=== PATIENT | female | born 1980 | race African-American/Black ===

== ENCOUNTER 2018-04-09 11:23 | Emergency (ER) | payer OTHER ==
[2018-04-09] MEDS ORDERED: Nitroglycerin 0.4 MG TAB (25 Tab Bottle) ONE (11:36)
[2018-04-09 11:45] LABS: #Basophils 0.1 thou/uL (0.0-0.2); #Eosinphils 0.7 thou/uL (0.0-0.7); #Lymphocytes 3.9 thou/uL (1.20-3.40); #Monocytes 0.7 thou/uL (0.11-0.59); #Neutrophils 2.9 thou/uL (1.40-6.50); %Basophils 1.4 % (0.0-1.0); %Lymphocytes 47.2 % (21.0-51.0); %Neutrophils 35.5 % (42.0-75.0); Hemoglobin 15.2 g/dL (12.0-16.0); Mean Corpuscular HGB CONC 34.3 g/dL (32.0-36.0); Mean Corpuscular Hemoglobin 32.2 pg (27.0-31.0); Mean Corpuscular Volume 93.9 fl (81.0-99.0); Mean Platelet Volume 7.1 fL (7.4-10.4); Platelet Count 265 thou/uL (130-400); RBC Distribution Width 12.2 % (11.5-14.5); Red Blood Cell (RBC) Count 4.72 mill/uL (4.20-5.40); White Blood Cell (WBC) Count 8.2 thou/uL (4.8-10.8)
[2018-04-09 12:12] LABS: CKMB 1.3 ng/mL (0-6.6); Troponin I Less than 0.010 ng/mL (< 0.028)
[2018-04-09] MEDS ORDERED: Acetaminophen 500 MG TAB ONE (12:12)
--- NOTE | 2018-04-09 12:30 | RAD ---
PORTABLE CHEST: HISTORY: Chest pain. FINDINGS: Heart size is borderline. The mediastinal structures appear unremarkable. The lungs are clear of in filtrates. IMPRESSION: Borderline to minimal cardiomegaly. No acute findings. POS: [facility]
[2018-04-09 12:37] LABS: Albumin 4.2 g/dL (3.5-5.0)
[2018-04-09 12:39] LABS: Calcium 9.4 mg/dL (7.8-10.44); Chloride 105 mmol/L (98-107); Potassium 3.9 mmol/L (3.5-5.1); Sodium 137 mmol/L (136-145)
[2018-04-09 12:40] LABS: Globulin 3.2 g/dL (2.4-3.5); Glucose 86 mg/dL (70-105); Protein, Total 7.4 g/dL (6.0-8.3)
[2018-04-09 12:41] LABS: Anion Gap 12 mmol/L (10-20); Carbon Dioxide 24 mmol/L (22-29)
[2018-04-09 12:42] LABS: Bilirubin, Total 0.3 mg/dL (0.2-1.2)
[2018-04-09 12:43] LABS: Alkaline Phosphatase 108 U/L (40-150); Calc. Creatinine Clearance 0 mL/min (70-130); Estimated GFR-MDRD Greater than 90
[2018-04-09 12:44] LABS: BUN (Urea Nitrogen) 13 mg/dL (7.0-18.7)
[2018-04-09 12:45] LABS: AST (SGOT) 22 U/L (5-34)
[2018-04-09 12:46] LABS: ALT (SGPT) 25 U/L (8-55); CK (CPK) 155 U/L (29-168); Lipase 18 U/L (8-78)
== END 2018-04-09 12:55 | disposition home or self-care (01) ==
LOC: ERS 11:23
DX: R07.9 Chest pain, unspecified (principal); I10 Essential (primary) hypertension; Z79.899 Other long term (current) drug therapy
CPT/HCPCS: 71045; 80053; 82553; 83690; 83880; 84484; 85025; 93005

== ENCOUNTER 2019-01-20 19:41 | Emergency (ER) | payer BC ==
--- NOTE | 2019-01-20 20:18 | RAD ---
RIGHT MIDDLE FINGER THREE VIEWS: 01/20/19 HISTORY: Finger injury. FINDINGS: Joint spaces are preserved. No acute fracture, dislocation or radiopaque foreign bodies. IMPRESSION: No acute osseous abnormalities are demonstrated. POS: [facility]
== END 2019-01-20 20:20 | disposition home or self-care (01) ==
LOC: SCSER 19:41
DX: S60.031A Contusion of right middle finger without damage to nail, initial encounter (principal); I10 Essential (primary) hypertension; W23.0XXA Caught, crushed, jammed, or pinched between moving objects, initial encounter